=== PATIENT | male | born 1940 | race Caucasian/White ===

== ENCOUNTER 2016-09-30 14:45 | Emergency (ER) | payer MEDICARE ==
[2016-09-30] MEDS ORDERED: IOPAMIDOL 300 (61%) 150 ML VIAL IV ONE (14:46)
[2016-09-30 15:43] LABS: ABSOLUTE NEUTROPHIL COUNT 4.7 K/mm3 (1.8-7.7); BASO % 0.2 % (0.2-1.0); EOS # 0.1 (0.0-0.5); EOS % 1.2 % (0.9-2.9); HEMATOCRIT 39.9 % (32.0-52.0); HEMOGLOBIN 13.6 gm/l (14.0-18.0); IMM NEUT% 0.2 % (0-1); LYMPH # 0.9 (1.0-4.8); LYMPH % 14.1 % (15-45); MEAN CELL VOLUME 91.3 fl (80.0-94.0); MEAN CORPUSCULAR HEMOGLOBIN 31.1 pg (27.0-31.0); MEAN CORPUSCULAR HGB CONC 34.1 g/dl (33.0-37.0); MEAN PLATELET VOLUME 9.2 fl (7.4-10.4); MONO # 0.7 (0.0-0.8); NEUT % 73.3 % (43-75); PLATELET COUNT 188 K/mm3 (130-400); RED CELL DISTRIBUTION WIDTH 11.9 % (11.5-14.5)
--- NOTE | 2016-09-30 16:37 | CT ---
HEAD CT WITHOUT CONTRAST HISTORY: Loss of balance. No intravenous contrast administered. Contiguous axial images acquired from skull base to vertex. COMPARISON:None. BRAIN VOLUME: Mild to moderate volume loss. VENTRICULAR SIZE:No gross ventriculomegaly. FOCAL MASS EFFECT:None. WHITE MATTER: Foci of white matter hypoattenuation suggesting minor microvascular disease. INTRACRANIAL CIRCULATION: Moderate atherosclerotic calcifications. ACUTE INTRACRANIAL HEMORRHAGE:None. CALVARIUM:Grossly intact. VISIBLE PARANASAL SINUSES AND MASTOID AIR CELLS: Minor paranasal sinus mucosal thickening. No tympanomastoid effusion. IMPRESSION: No gross mass effect, ventriculomegaly, or acute intracranial hemorrhage. 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 No gross CT findings of otomastoiditis. Results were electronically transmitted to the electronic medical record at 09/30/2016 at 1634 hours.
--- NOTE | 2016-09-30 16:38 | RAD ---
CHEST 2 VIEWS HISTORY: Ataxia. Frontal and lateral chest radiographs dated 09/30/2016. COMPARISON: None. FINDINGS: FOCAL AIRSPACE OPACITY: No gross airspace consolidation. PLEURAL EFFUSION: None. CARDIOMEDIASTINAL SILHOUETTE: Tortuous aorta. PNEUMOTHORAX: None identified. OSSEOUS STRUCTURES: Bridging osteophytes of the thoracic spine. IMPRESSION: No acute cardiopulmonary process noted.
[2016-09-30 17:10] LABS: INR 1.02; PROTHROMBIN TIME 10.7 SECONDS (9.3-11.4)
[2016-09-30 17:17] LABS: ALB/GLOB RATIO 1.4 (>1.0); ALBUMIN 4.1 gm/dL (3.5-5.7); CALCIUM 9.5 mg/dL (8.6-10.3)
--- NOTE | 2016-09-30 17:58 | CT ---
CT ABDOMEN AND PELVIS WITH CONTRAST HISTORY: Altered bowel function. TECHNIQUE: Following intravenous administration of 125 mL Isovue-300, contiguous axial images were acquired from the lung bases to the ischial tuberosities. Oral contrast was administered. COMPARISON:None. FINDINGS: LUNG BASES: Minor atelectatic change in bronchial wall thickening of the right lung base. 4 mm nodule of the right middle lobe, image 4. LIVER: Small cystic lesions of the 1.6 cm in size. SPLEEN: No focal lesion. STOMACH: Small hiatal hernia. PANCREAS: Bilobed pancreatic tail mass, hyperenhancing in nature. ADRENAL GLANDS: Hyperplastic change. Nodularity of the anterior left adrenal gland, 1.3 cm in size. KIDNEYS: 2.4 cm left renal cyst. No solid mass or collecting system dilatation. GALLBLADDER: Surgically absent. No gross biliary dilatation. BOWEL: Moderate fecal loading. Limited assessment of the distal colon due to decompression. No abnormal small bowel dilatation. Scattered wall thickening of multiple left-sided loops of small bowel. APPENDIX: Normal gas-filled appendix. PELVIC ORGANS: Mild prostatomegaly, prostate gland 5.0 cm in width. Inguinal regions: Small fatty left inguinal hernia. FREE FLUID: No gross free fluid identified. ABDOMINOPELVIC LYMPH NODES: No abnormally enlarged lymph nodes identified. ABDOMINAL AORTA: Moderate atherosclerotic calcifications. ANTERIOR ABDOMINAL WALL: Supraumbilical ventral hernia of the fatty nature, sac measuring 6.6 x 6.2 cm, aperture measuring 1.6 x 2.2 cm.. Separate fatty umbilical hernia, sac measuring 2.3 x 3.5 cm, aperture measuring 2.1 x 1.6 cm. OSSEOUS STRUCTURES: Moderately severe facet degeneration at L4-5 with mild anterolisthesis. Thoracic osteophyte formation. Moderate canal stenosis at the L4-5 level. IMPRESSION: 1. Solid bilobed pancreatic tail mass of a hyperenhancing lesion nature measuring 3.3 x 2.8 x 2.0 cm in size, suspicious for neoplasm. Recommend MRI assessment for further characterization. A 1.3 cm left adrenal nodule could also be assessed at this time. 2. Nonspecific foci of jejunal wall thickening without obstructive change, correlate for possible enteritis. Moderate fecal load. Normal appendix. 3. Fatty ventral hernia as above without bowel content or findings of gross incarceration. 4. Small hiatal hernia. Small left fatty inguinal hernia. 5. Cystic lesions of the left kidney and liver. 6. 4 mm right middle lobe pulmonary nodule, recommend 12 month follow-up if the patient has a history of smoking or cancer. Consider chest CT to exclude additional lesions. 7. Lumbar spondylosis with moderate facet degeneration and canal stenosis at L4-5 level. Findings discussed with Dr. Mancuso of the Emergency Medicine clinical service on 09/22/2016 at 1751 hours.
[2016-09-30 19:05] LABS: URINE APPEARANCE CLEAR; URINE BILIRUBIN NEGATIVE (NEGATIVE); URINE BLOOD NEGATIVE (NEGATIVE); URINE COLOR YELLOW; URINE GLUCOSE (UA) NEGATIVE (NEGATIVE); URINE LEUKOCYTE ESTERASE NEGATIVE (NEGATIVE); URINE NITRITE NEGATIVE (NEGATIVE); URINE PROTEIN NEGATIVE (NEGATIVE); URINE UROBILINOGEN NEGATIVE (0-1 mg/dl)
== END 2016-09-30 19:18 | disposition home or self-care (01) ==
LOC: ED 14:45
DX: K86.9 Disease of pancreas, unspecified (principal); K59.00 Constipation, unspecified; I47.1 Supraventricular tachycardia; I50.9 Heart failure, unspecified; E78.5 Hyperlipidemia, unspecified; I10 Essential (primary) hypertension; F41.9 Anxiety disorder, unspecified; Z79.899 Other long term (current) drug therapy
CPT/HCPCS: 85025; 80053; 85610; 81003; 71020; 74177; 70450; 99284 ×2; 93005; Q9967